=== PATIENT | male | born 1960 | race Caucasian/White ===

== ENCOUNTER 2023-06-27 07:34 | Day surgery (SDC) | payer OTHER ==
[~2023-06-27] VITALS: Ht 172.7 cm; Wt 80.2 kg
[2023-06-27] VITALS (11 sets, daily range): BP systolic 118–156; BP diastolic 83–107
[~2023-06-27 07:34] MED LIST: HYDACE10B PO; NALOXONE HCL4 MG NS; NURTEC ODT75 MG PO; OMEP20ER PO; OXYC10ER PO
[2023-06-27] MEDS ORDERED: LIDO700A20 TOP (08:17)
--- NOTE | 2023-06-27 08:49 | NUR ---
Ambulatory in Day Surgery History, Chart, Medications and Allergies reviewed before start of procedure. Pre-Op teaching done. Pt verbalizes understanding. Patient States Post-Procedure ride home has been arranged.
[2023-06-27 09:51] LABS: Bun/Creatinine Ratio 15.1 (12.0-20.0); Calcium, Blood 8.5 mg/dL (8.5-10.1); Creatinine, Blood 0.86 mg/dL (0.60-1.20); Potassium, Blood 4.1 mmol/L (3.5-5.5)
--- NOTE | 2023-06-27 13:27 | NUR ---
Patient up to Ambulate independently. Gait steady. Discharge instructions reviewed with patient. Patient verbalizes understanding. Copy given to patient to take home. Discharged via wheelchair to private car for ride home WITH COUSIN. PATIENT ASSISTED INTO VEHICLE.
== END 2023-06-27 22:49 | disposition home or self-care (01) ==
LOC: ORD 07:34 → ORSCMMR 07:34 → ORD 09:30 → ORSCMMR 09:30
PROVIDERS: Surgery
PROC: 0YU54JZ Supplement Right Inguinal Region with Synthetic Substitute, Percutaneous Endoscopic Approach (ICD-10-PCS; principal; 2023-06-27 09:30)
PROC: 8E0W4CZ Robotic Assisted Procedure of Trunk Region, Percutaneous Endoscopic Approach (ICD-10-PCS; principal; 2023-06-27 09:30)
DX: K40.90 Unilateral inguinal hernia, without obstruction or gangrene, not specified as recurrent (principal); I10 Essential (primary) hypertension; F17.210 Nicotine dependence, cigarettes, uncomplicated; K21.9 Gastro-esophageal reflux disease without esophagitis; G47.33 Obstructive sleep apnea (adult) (pediatric); Z79.899 Other long term (current) drug therapy
CPT/HCPCS: 36415; 80048; 93005; 93010; A9270; C1781; J1100; J1170; J1885; J2250; J2405; J2704; J3010; J7120